=== PATIENT | male | born 2005 | race Caucasian/White ===

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

== ENCOUNTER 2023-02-12 17:21 | Emergency (ER) | payer MEDICAID ==
[2023-02-12 17:30] VITALS: O2SAT 100
--- NOTE | 2023-02-12 17:49 | ED Physician Documentation ---
History of Present Illness - Stated complaint Stated Complaint: VOMITING - Chief complaint Chief Complaint: Neuro - History obtained from History obtained from: Patient, Family - History of Present Illness Timing: Today Pain level max: 4 Pain level now: 4 - Additonal information Additional information: Patient is an 17-year-old male with a history of diabetes insipidus. He has had vomiting for the past 3 days. He takes DDAVP at home. He states that he has not had hyponatremia recently. No falls. No fever. No chills. He feels like he is dehydrated. He has abdominal cramping. No headache. No trauma. He states that his usual sodium is between 135 and 140 Review of Systems Constitutional: denies: Fever, Chills Nose: denies: Rhinorrhea / runny nose, Congestion PD PAST MEDICAL HISTORY - Past Medical History Past Medical History: Yes Respiratory: Other Endocrine/Autoimmune: Other Psych: Other Other Past Medical History: DI, Bleeding disorder, pneumothorax, autistic with development delay - Past Surgical History Past Surgical History: Yes - Present Medications Home Medications: Ambulatory Orders Medication Instructions Recorded Confirmed Desmopressin Acetate [Ddavp] 0.1 mg PO DAILY 02/12/23 02/12/23 Desmopressin Acetate [Ddavp] 0.4 mg PO BID 02/12/23 02/12/23 Promethazine [Phenergan] 25 mg PO Q6H PRN #10 tab 02/12/23 - Allergies Allergies/Adverse Reactions: Allergies Allergy/AdvReac Type Severity Reaction Status Date / Time aspirin Allergy Unknown Verified 02/12/23 17:30 beet Allergy Anaphylaxis Verified 02/12/23 17:30 clonidine Allergy Hallucinati Verified 02/12/23 17:30 ons ping Allergy Anaphylaxis Verified 02/12/23 17:30 ibuprofen Allergy Unknown Verified 02/12/23 17:30 - Social History Does the pt smoke?: No Does the pt drink ETOH?: No Does the pt have substance abuse?: No - Immunizations Immunizations are current?: Yes PD ED PE NORMAL - Vitals Vital signs reviewed: Yes - General General: Alert and oriented X 3, No acute distress - HEENT HEENT: PERRL, Other (Dry lips and tongue) - Neck Neck: Supple, no meningeal sign - Cardiac Cardiac: RRR, Strong equal pulses - Respiratory Respiratory: No respiratory distress, Clear bilaterally - Abdomen Abdomen: Soft, Non tender, Non distended - Back Back: No CVA TTP - Derm Derm: Warm and dry, No rash - Extremities Extremities: No edema - Neuro Neuro: Alert and oriented X 3 - Psych Psych: Normal mood, Normal affect Results - Vitals Vitals: Vital Signs - 24 hr 02/12/23 02/12/23 02/12/23 17:24 18:19 18:30 Temperature 36.5 C Heart Rate 79 74 71 Respiratory 16 16 16 Rate Blood Pressure 130/79 122/75 122/79 O2 Saturation 100 100 100 02/12/23 02/12/23 19:00 19:30 Temperature Heart Rate 80 88 Respiratory 18 16 Rate Blood Pressure 118/76 126/74 O2 Saturation 100 100 Oxygen O2 Source Room air - Labs Labs: Laboratory Tests 02/12/23 02/12/23 02/12/23 18:04 18:04 18:14 WBC 5.8 RBC 5.38 Hgb 16.0 Hct 46.8 MCV 87.0 MCH 29.7 MCHC 34.2 RDW 11.9 L Plt Count 218 MPV 10.4 Neut # (Auto) 3.3 Lymph # (Auto) 1.9 [place] # (Auto) 0.5 Eos # (Auto) 0.0 Baso # (Auto) 0.0 Absolute Nucleated RBC 0.00 Nucleated RBC % 0.0 Sodium 139 Potassium 3.7 Chloride 102 Carbon Dioxide 28 Anion Gap 9.0 BUN 11 Creatinine 0.7 Estimated GFR (MDRD) 145 Glucose 83 Calcium 9.9 Phosphorus 3.9 Magnesium 1.9 Total Bilirubin 1.0 AST 19 ALT 11 Alkaline Phosphatase 54 Total Protein 7.7 Albumin 4.6 Globulin 3.1 Albumin/Globulin Ratio 1.5 Lipase 10 L Urine Color DARK YELLOW Urine Clarity CLEAR Urine pH 5.5 Ur Specific [place] >=1.030 H Urine Protein TRACE Urine Glucose (UA) NEGATIVE Urine Ketones 40 H Urine Occult Blood NEGATIVE Urine Nitrite NEGATIVE Urine Bilirubin NEGATIVE Urine Urobilinogen 1 (NORMAL) Ur Leukocyte Esterase NEGATIVE Ur Microscopic Review NOT INDICATED Urine Culture Comments NOT INDICATED PD Medical Decision Making - ED course Complexity details: reviewed results, re-evaluated patient, considered differential, d/w patient ED course: Patient is well-appearing, nontoxic. Afebrile. No significant lab abnormalities. Given 2 L of IV fluid. No abdominal pain. No further vomiting or nausea. Eating and drinking without difficulty. Possible viral syndrome? Patient does request nausea medication for home, we will prescribe Phenergan as he states this works better than Zofran. No indication for CT scan. Patient counseled regarding signs and symptoms for which I believe and urgent re- evaluation would be necessary. Patient with good understanding of and agreement to plan and is comfortable going home at this time This document was made in part using voice recognition software. While efforts are made to proofread this document, sound alike and grammatical errors may occur. Departure - Departure Disposition: 01 Home, Self Care Clinical Impression: Dehydration Vomiting Qualifiers: Vomiting type: unspecified Nausea presence: with nausea Qualified Code(s): R11.2 - Nausea with vomiting, unspecified Condition: Good Instructions: ED Nausea Vomiting Follow-Up: JOSE ANTONIO RUIZ DO [Primary Care Provider] - Within 1 week Prescriptions: Promethazine [Phenergan] 25 mg PO Q6H PRN #10 tab PRN Reason: Nausea / Vomiting Comments: Please follow-up with your doctor for further care. Your prescription is sent to [facility] in [place]. Your sodium levels are normal today. Please return if you worsen. Forms: PCP List Discharge Date/Time: 02/12/23 20:37
[2023-02-12] MEDS: SODIUM CHLORIDE 0.9% 1,000 ML IV STA ×2 (18:08→18:53)
[2023-02-12 18:18] LABS: BASOPHILS % (AUTO) 0.2 %; EOSINOPHILS % (AUTO) 0.3 %; HCT - HEMATOCRIT 46.8 % (42.0-52.0); LYMPHOCYTES # (AUTO) 1.9 10^3/uL (1.5-3.5); LYMPHOCYTES % (AUTO) 33.3 %; MEAN CORPUSCULAR HEMOGLOBIN 29.7 pg (27.0-31.0); MEAN CORPUSCULAR HGB CONC 34.2 g/dL (32.0-36.0); MEAN PLATELET VOLUME 10.4 fL (7.4-11.4); MONOCYTES # (AUTO) 0.5 10^3/uL (0.0-1.0); MONOCYTES % (AUTO) 9.2 %; NEUTROPHILS # (AUTO) 3.3 10^3/uL (1.5-6.6); PLT - PLATELET COUNT 218 10^3/uL (130-450); RED BLOOD COUNT 5.38 10^6/uL (4.70-6.10); RED CELL DISTRIBUTION WIDTH 11.9 % (12.0-15.0); WHITE BLOOD COUNT 5.8 x10^3/uL (4.8-10.8)
[2023-02-12 18:22] LABS: ALBUMIN 4.6 g/dL (3.2-5.5); ALBUMIN/GLOBULIN RATIO 1.5 (1.0-2.2); CALCIUM 9.9 mg/dL (8.5-10.3); CREATININE 0.7 mg/dL (0.6-1.3); MAGNESIUM 1.9 mg/dL (1.7-2.3); PHOSPHORUS 3.9 mg/dL (2.5-5.0); POTASSIUM 3.7 mmol/L (3.5-4.5); TOTAL PROTEIN 7.7 g/dL (6.4-8.9)
[2023-02-12 18:29] LABS: GLUCOSE, URINE (UA) NEGATIVE (NEGATIVE); KETONES,URINE (UA) 40 mg/dL (NEGATIVE); LEUKOCYTE ESTERASE, URINE NEGATIVE (NEGATIVE); NITRITE,URINE NEGATIVE (NEGATIVE); OCCULT BLOOD,URINE NEGATIVE (NEGATIVE); PH,URINE 5.5 PH (5.0-7.5); PROTEIN,URINE TRACE mg/dL (NEGATIVE); UROBILINOGEN,URINE 1 (NORMAL) E.U./dL (NORMAL)
[2023-02-12] MEDS ORDERED: SODIUM CHLORIDE 0.9% 2,000 ML IV STA (18:34)
[2023-02-12 18:36] LABS: BILIRUBIN,URINE NEGATIVE (NEGATIVE); CLARITY,URINE CLEAR (CLEAR); ICTOTEST,URINE NEGATIVE
[2023-02-12 19:49] VITALS: BP 126/74
== END 2023-02-12 20:37 | disposition home or self-care (01) ==
LOC: ED 17:21 → MERGE 17:21 → ED 20:37
DX: E86.0 Dehydration (principal); R11.2 Nausea with vomiting, unspecified
CPT/HCPCS: 36415; 80053; 81001; 81003; 83690; 83735; 84100; 85025; 87086; 96360; 99283

== ENCOUNTER 2023-11-26 13:30 | Outpatient (CLI) | payer MEDICAID | END 2023-11-26 13:45 | disposition home or self-care (01) | LOC: LAB.N 13:30 | PROVIDERS: ATTEND Physician Assistant Medical | DX: L03.019 Cellulitis of unspecified finger (principal) | CPT/HCPCS: 87070; 87205 ==